=== PATIENT | male | born 2000 | race American Indian/Alaskan Native ===

== ENCOUNTER 2020-06-07 20:20 | Emergency (ER) | payer OTHER ==
--- NOTE | 2020-06-07 20:23 | Event Note ---
ED Screening Note ED Screening Note: pt deaf comes to er w caregiver cp and sob has been social distanced so not believed to be covid This initial assessment/diagnostic orders/clinical plan/treatment(s) is/are subject to change based on patients health status, clinical progression and re- assessment by fellow clinical providers in the ED. Further treatment and workup at subsequent clinical providers discretion. Patient/guardian urged not to elope from the ED as their condition may be serious if not clinically assessed and managed. Initial orders include: ekg chest xray basic labs
[2020-06-07 21:12] LABS: Hematocrit 47.6 % (35.5-45.6); Mean Corpuscular HGB Conc 34 % (32-34); Mean Corpuscular Volume 87 fl (84-94); Platelet Count 299 K/mm3 (140-440); Red Blood Count 5.48 M/mm3 (3.65-5.03); Red Cell Distribution Width 12.6 % (13.2-15.2)
--- NOTE | 2020-06-07 21:20 | XRay Report ---
CHEST 2 VIEWS INDICATION / CLINICAL INFORMATION: sob. COMPARISON: None available. FINDINGS: SUPPORT DEVICES: None. HEART / MEDIASTINUM: No significant abnormality. LUNGS / PLEURA: No significant pulmonary or pleural abnormality. No pneumothorax. ADDITIONAL FINDINGS: No significant additional findings. IMPRESSION: 1. No acute findings. Signer Name: Ricardo Kirk MD Signed: 06/07/2020 9:16 PM Workstation Name: [id number]
[2020-06-07 21:26] LABS: Alanine Aminotransferase 12 units/L (7-56); Albumin 4.9 g/dL (3.9-5); BUN/Creatinine Ratio 12; Blood Urea Nitrogen 11 mg/dL (9-20); Calcium 9.9 mg/dL (8.4-10.2); Hemolysis Index 7
[2020-06-07 22:59] VITALS: BP 115/71
--- NOTE | 2020-06-07 23:45 | Emergency Department Report ---
ED General Adult HPI - General Chief complaint: Chest Pain Stated complaint: CHEST PAIN, MARIA ELENA Time Seen by Provider: 06/07/20 20:23 Source: patient, family Mode of arrival: Ambulatory Limitations: Other (deaf) - History of Present Illness Initial comments: Patient is a 20-year-old male who has a history of deafness history is interpreted by patient's stepfather. patient presents for substernal chest pain that began around 1 PM today. He states the pain is worse with palpation and movement. He states that he did have some shortness of breath. Stepfather states that the symptoms have improved and he is feeling much better. Patient denies any nausea, vomiting, diarrhea, cough, fever, leg swelling, pleuritic chest pain. No allergies to medications. Patient is a non-smoker. - Related Data Previous Rx's Medication Instructions Recorded Last Taken Type Naproxen [EC-Naprosyn] 500 mg PO BID #14 tablet. 06/07/20 Unknown Rx Allergies Allergy/AdvReac Type Severity Reaction Status Date / Time No Known Allergies Allergy Unverified 06/07/20 20:43 ED Review of Systems ROS: Stated complaint: CHEST PAIN, MARIA ELENA Other details as noted in HPI Comment: All other systems reviewed and negative ED Past Medical Hx - Past Medical History Previous Medical History?: Yes Additional medical history: DEAF - Surgical History Past Surgical History?: No - Social History Smoking Status: Never Smoker Substance Use Type: None - Medications Home Medications: Home Medications Medication Instructions Recorded Confirmed Last Taken Type Naproxen [EC-Naprosyn] 500 mg PO BID #14 tablet. 06/07/20 Unknown Rx ED Physical Exam - General Limitations: No Limitations General appearance: alert, in no apparent distress - Head Head exam: Present: atraumatic, normocephalic - Eye Eye exam: Present: normal appearance - ENT ENT exam: Present: mucous membranes moist - Respiratory Respiratory exam: Present: normal lung sounds bilaterally, chest wall tenderness (mid reproducible anterior sternal chest wall ttp, no crepitus, no deformity, no flail chest, no ecchymosis). Absent: respiratory distress, wheezes, rales, rhonchi, stridor, accessory muscle use, decreased breath sounds, prolonged expiratory - Cardiovascular Cardiovascular Exam: Present: regular rate, normal rhythm, normal heart sounds. Absent: systolic murmur, diastolic murmur, rubs, gallop - Extremities Exam Extremities exam: Absent: pedal edema - Neurological Exam Neurological exam: Present: alert, oriented X3 - Psychiatric Psychiatric exam: Present: normal affect, normal mood - Skin Skin exam: Present: warm, dry, intact ED Course Vital Signs 06/07/20 06/07/20 20:44 23:59 Temperature 98.4 F Pulse Rate 94 H 83 Respiratory 16 16 Rate Blood Pressure 115/71 O2 Sat by Pulse 96 99 Oximetry ED Medical Decision Making - Lab Data Result diagrams: 06/07/20 20:47 06/07/20 20:47 Lab Results 06/07/20 06/07/20 06/07/20 Range/Units 20:47 20:47 20:47 WBC 10.4 (4.5-11.0) K/mm3 RBC 5.48 H (3.65-5.03) M/mm3 Hgb 16.0 H (11.8-15.2) gm/dl Hct 47.6 H (35.5-45.6) % MCV 87 (84-94) fl MCH 29 (28-32) pg MCHC 34 (32-34) % RDW 12.6 L (13.2-15.2) % Plt Count 299 (140-440) K/mm3 Sodium 136 L (137-145) mmol/L Potassium 4.0 (3.6-5.0) mmol/L Chloride 98.4 (98-107) mmol/L Carbon Dioxide 27 (22-30) mmol/L Anion Gap 15 mmol/L BUN 11 (9-20) mg/dL Creatinine 0.9 (0.8-1.3) mg/dL Estimated GFR > 60 ml/min BUN/Creatinine Ratio 12 % Glucose 93 (75-100) mg/dL Calcium 9.9 (8.4-10.2) mg/dL Total Bilirubin 1.10 (0.1-1.2) mg/dL AST 17 (5-40) units/L ALT 12 (7-56) units/L Alkaline Phosphatase 72 (35-129) units/L Troponin T < 0.010 (0.00-0.029) ng/mL Total Protein 7.2 (6.3-8.2) g/dL Albumin 4.9 (3.9-5) g/dL Albumin/Globulin Ratio 2.1 % - EKG Data EKG shows normal: sinus rhythm, axis, intervals, QRS complexes Rate: bradycardia - EKG Data 06/07/20 23:43 early repolarization no STEMI - Radiology Data Radiology results: report reviewed CHEST 2 VIEWS INDICATION / CLINICAL INFORMATION: sob. COMPARISON: None available. FINDINGS: SUPPORT DEVICES: None. HEART / MEDIASTINUM: No significant abnormality. LUNGS / PLEURA: No significant pulmonary or pleural abnormality. No pneumothorax. ADDITIONAL FINDINGS: No significant additional findings. IMPRESSION: 1. No acute findings. Signer Name: Ricardo Kirk MD Signed: 06/07/2020 9:16 PM Workstation Name: [id number] Transcribed By: DT Dictated By: Suhas Kirk MD Electronically Authenticated By: Suhas Kirk MD Signed Date/Time: 06/07/202115 DD/ 14 TD/TT: - Medical Decision Making Patient is a 20-year-old male who has a history of deafness history is interpreted by patient's stepfather. patient presents for substernal chest pain that began around 1 PM today. He states the pain is worse with palpation and movement. He states that he did have some shortness of breath. Stepfather states that the symptoms have improved and he is feeling much better. Patient denies any nausea, vomiting, diarrhea, cough, fever, leg swelling, pleuritic chest pain. No allergies to medications. Patient is a non-smoker. Vitals are normal. on exam: mid reproducible anterior sternal chest wall ttp, no crepitus, no deformity, no flail chest, no ecchymosis. CXR: 1. No acute findings. EKG with normal early repolarization and mild sinus bradycardia at 55 bpm, otherwise normal. Labs are normal. Troponin is negative. PERC criteria negative for PE. Patient does not have any cardiac risk factors. It seems most likely to be related to costochondritis as pain is reproducible. Patient given prescription for naproxen. Advised patient and caregiver Please take medication as prescribed. May use ice pack, heating pad, rest, Epson salt bath. Follow-up with a primary care doctor for reexamination. Return to emergency room immediately for any new or worsening symptoms. - Differential Diagnosis anxiety, anemia, PTX, PNA, ACS, costochrondritis, pericarditis, PE, muscle Critical care attestation.: If time is entered above; I have spent that time in minutes in the direct care of this critically ill patient, excluding procedure time. ED Disposition Clinical Impression: Atypical chest pain, SOB (shortness of breath) Disposition: DC-01 TO HOME OR SELFCARE Is pt being admited?: No Does the pt Need Aspirin: No Condition: Stable Instructions: Costochondritis (ED) Additional Instructions: Please take medication as prescribed. May use ice pack, heating pad, rest, Epson salt bath. Follow-up with a primary care doctor for reexamination. Return to emergency room immediately for any new or worsening symptoms. Prescriptions: Naproxen [EC-Naprosyn] 500 mg PO BID #14 tablet. Referrals: PRIMARY CAREMD [Primary Care Provider] - 2-3 Days Time of Disposition: 23:44 Print Language: AZERBAIJANI
== END 2020-06-07 23:59 | disposition home or self-care (01) ==
LOC: ED 20:20
DX: R06.02 Shortness of breath (principal); R07.89 Other chest pain; Z79.899 Other long term (current) drug therapy
CPT/HCPCS: 36415; 71046; 80053; 84484; 85027; 93005